=== PATIENT | male | born 1950 | race Caucasian/White ===

== ENCOUNTER 2016-11-17 19:30 | Emergency (ER) | payer MEDICARE, OTHER ==
[2016-11-17 19:52] VITALS: BP 147/92
[2016-11-17] MEDS ORDERED: Lidocaine 1% 50 ML MDV INJECT ONE (19:52)
--- NOTE | 2016-11-17 20:05 | EDM.PDOC ---
ED HPI Skin/Rash - General Chief Complaint: Laceration Stated Complaint: L INDEX FINGER LACERATION Time Seen by Provider: 11/17/16 19:50 Source: Reports: Patient History Limitations: Reports: No limitations - History of Present Illness INITIAL COMMENTS - FREE TEXT/NARRATIVE: Patient is a 66-year-old male presents ED complaining of left index finger laceration secondary to a crush injury from a heavy ramp. Patient states he got it stuck in between a wheel and ramp. States with palpation of a possible crunching of the bones noted. States pain is mild at this time. Tetanus up-to- date. Location, Skin: Reports: upper extremity, left (index finger left hand) Quality: Reports: Ache Severity: mild Known Identified Source: yes Place of Occurrence: home Sick Contact: no Similar Symptoms Previously: no Recent Medical Care: no Treatments OCULARIST: Reports: Other (see below) (none stated. ) - Related Data Allergies Allergy/AdvReac Type Severity Reaction Status Date / Time No Known Allergies Allergy Verified 11/17/16 19:52 Home Meds: Ambulatory Orders Medication Instructions Recorded Confirmed Cephalexin [Keflex] 500 mg PO QID #28 capsule 11/17/16 Citalopram [Celexa] 10 mg PO DAILY 11/17/16 11/17/16 ED ROS GENERAL - Review of Systems Review Of Systems: See Below Musculoskeletal: Reports: other (laceration to the tip of the left index finger involving the nailbed. ) Neurological: Denies: Numbness, Tingling ED EXAM, SKIN/RASH Exam: See Below Exam Limited By: No limitations General Appearance: alert, WD/WN, no apparent distress Ears: hearing grossly normal Nose: normal inspection Throat/Mouth: Normal voice, No airway compromise Neck: normal inspection Respiratory/Chest: no respiratory distress, no accessory muscle use Cardiovascular: normal peripheral pulses, regular rate, rhythm Extremities: other (laceration to the tip of the left index finger with deformity noted. minimal pain on examination. no sensory changes noted. unable to flex/extend the tip of the finger suspect extensor/extension tendons involved. ) Neurological: alert, oriented, normal cognition Psychiatric: normal affect, normal mood Skin: Warm, Dry, Normal color Course - Vital Signs Last Recorded V/S: Last Vital Signs Temp 97.9 F 11/17/16 19:42 Pulse 68 11/17/16 19:42 Resp 16 11/17/16 19:42 BP 147/92 H 11/17/16 19:42 Pulse Ox 95 11/17/16 19:42 - Orders/Labs/Meds Orders: Active Orders 24 hr Category Date Time Status Peripheral IV Care [RC] . DIRECTED Care 11/17/16 20:56 Active Fingers Second Digit Lt F1 [CR] Stat Exams 11/17/16 19:52 Taken Sodium Chloride 0.9% [Saline Flush] Med 11/17/16 20:56 Active 10 ml FLUSH ASDIRECTED PRN Peripheral IV Insertion Adult [OM.PC] Stat Oth 11/17/16 20:56 Ordered Medication Orders Sodium Chloride (Saline Flush) 10 ml FLUSH ASDIRECTED PRN PRN Reason: Keep Vein Open Last Admin: 11/17/16 21:10 Dose: 10 ml Meds: Medications Generic Name Dose Route Start Last Admin Trade Name Freq PRN Reason Stop Dose Admin Sodium Chloride 10 ml 11/17/16 20:56 11/17/16 21:10 Saline Flush FLUSH 10 ml ASDIRECTED PRN Administration Keep Vein Open Discontinued Medications Generic Name Dose Route Start Last Admin Trade Name Freq PRN Reason Stop Dose Admin Cefazolin Sodium/Dextrose 1 gm 50 mls @ 100 mls/hr 11/17/16 20:56 11/17/16 21 :06 / Premix IV 11/17/16 21:25 100 mls/hr ONETIME ONE Administration Lidocaine HCl 50 ml 11/17/16 19:52 11/17/16 20:02 Xylocaine 1% INJECT 11/17/16 19:53 50 ml ONETIME ONE Administration - Re-Assessments/Exams Free Text/Narrative Re-Assessment/Exam: 11/17/16 20:11 Performed a digital block on the left index finger with no complications. Finger is numb. Will obtain IV for IV antibiotics. X-ray to be obtained. Once this is completed we'll go ahead and close the affected finger with sutures. IV has been ordered with Ancef 1 g IVP. X-ray of the right fifth finger shows a displaced fracture to the distal phalanx. 11/17/16 21:45 IV antibiotic is in. Laceration closed with no complications. Reexamination, patient was able to flex and extend the Distal phalanx at the DIP when put back together. Will have nursing staff dress wound with tube gauze and aluminium splint. Will discharge patient home with instructions and prescription for keflex. Departure - Departure Time of Disposition: 21:54 Disposition: Home, Self-Care 01 Condition: good Clinical Impression: Open finger fracture Qualifiers: Encounter type: initial encounter Finger: index finger Phalanx: distal Fracture alignment: displaced Laterality: left Qualified Code(s): S62.631B - Displaced fracture of distal phalanx of left index finger, initial encounter for open fracture Open wnd finger w/ tendon Qualifiers: Encounter type: initial encounter Qualified Code(s): S61.209A - Unspecified open wound of unspecified finger without damage to nail, initial encounter Prescriptions: Cephalexin [Keflex] 500 mg PO QID #28 capsule Referrals: Lavelle Aguiar MD [Primary Care Provider] - Forms: ED Department Discharge Additional Instructions: Leave dressing in place until tomorrow afternoon. Cleanse site twice daily with soap and water, pat dry. Apply triple antibiotic ointment and dressing. Keep clean and dry. Wear splint for at least [address] Padilla's clinic tomorrow to be evaluated RAUL. Take the keflex as prescribed. For pain take ibuprofen and tylenol in alternating fashion for pain. For severe pain take norco 1 tab every 6 hrs PRN. No driving while taking the norco. Elevate finger when able to reduce swelling. Utilize ice as needed for swelling as well. Return to the E.D. if you develop increased pain, swelling, redness, or purulent drainage. - My Orders Last 24 Hours: My Active Orders 11/17/16 19:52 Fingers Second Digit Lt F1 [CR] Stat 11/17/16 20:56 Peripheral IV Care [RC] . DIRECTED Sodium Chloride 0.9% [Saline Flush] 10 ml FLUSH ASDIRECTED PRN Peripheral IV Insertion Adult [OM.PC] Stat - Assessment/Plan Last 24 Hours: My Active Orders 11/17/16 19:52 Fingers Second Digit Lt F1 [CR] Stat 11/17/16 20:56 Peripheral IV Care [RC] . DIRECTED Sodium Chloride 0.9% [Saline Flush] 10 ml FLUSH ASDIRECTED PRN Peripheral IV Insertion Adult [OM.PC] Stat
[2016-11-17] MEDS ORDERED: Sodium Chloride 0.9% 10 ML Syringe FLUSH PRN (20:56)
[2016-11-17] MEDS ORDERED: ceFAZolin 1 GM in Premix Bag 1 BAG IV ONE (20:56)
--- NOTE | 2016-11-18 08:21 | CR ---
Left second finger: Four views of the left second finger were obtained. Fracture is identified within the distal phalanx. Mild degenerative change noted within the DIP and PIP joint as well as small osteophytes within the MCP joint. Soft tissue swelling and injury are seen. No additional acute abnormality is noted. Impression: 1. Fracture within the distal phalanx with soft tissue swelling. 2. Mild degenerative change. Diagnostic code #3
== END 2016-11-17 22:15 | disposition home or self-care (01) ==
LOC: JD.ED 19:30
DX: S62.631B Displaced fracture of distal phalanx of left index finger, initial encounter for open fracture (principal); W23.0XXA Caught, crushed, jammed, or pinched between moving objects, initial encounter; Z79.899 Other long term (current) drug therapy
CPT/HCPCS: 12004; 64450; 73140; 96365; 99283; J0690; J7050; 12002; 99284-25

== ENCOUNTER 2017-08-19 08:34 | Emergency (ER) | payer MEDICARE, OTHER ==
--- NOTE | 2017-08-19 09:04 | EDM.PDOC ---
ED HPI GENERAL MEDICAL PROBLEM - General Chief Complaint: Syncope Stated Complaint: SOB/POSS ANXIETY Time Seen by Provider: 08/19/17 08:58 Source of Information: Reports: Patient History Limitations: Reports: No Limitations - History of Present Illness INITIAL COMMENTS - FREE TEXT/NARRATIVE: 67-year-old male attends the ED in the accompaniment of his . Patient states that he got up this morning as per his usual. He made oatmeal and had eaten oatmeal but did not feel well after eating. Got up from the table and start to walk towards the bedroom to get his for help due to the way he was feeling. He made it into the bedroom but then collapsed at the foot of the bed striking his undersurface of his mid mandible on a bench. He denies any malocclusion. He also injured his right hand when it hit the floor. He subsequently has developed left-sided cervical neck pain mostly in the distribution of the sternocleidomastoid muscle. Feels dizzy and lightheaded and remains quite nauseated. He's been having chronic troubles with his stomach and is booked potentially for EGD this Friday. He said no previous abdominal surgery. When he tried to get up or with the assistance of his he once again collapsed to the floor without loss of consciousness. I.e. presyncope. He is moderately orthostatic. Heart rate is in the 50s. He continues to feel lightheaded dizzy and nauseated with some abdominal discomfort. Denies any knee or lower extremity pain and is able to walk with the aid of his . His reports that when he came into the bedroom he was very pallid in appearance and appeared to be diaphoretic. She reports she was very nauseated at the time that he entered the bedroom. He strong vagal effect Onset: Today Onset Date: 08/19/17 Onset Time: 07:00 Duration: Hour(s): Location: Reports: Head, Face (Undersurface of mandible.) Quality: Reports: Other Severity: Moderate (Nausea and lightheadedness abdominal pain epigastric right upper quadrant) Improves with: Reports: None Worsens with: Reports: Movement Context: Reports: Other (Sudden onset of nausea and lightheadedness and dizziness and near syncope episode 2 this morning.). Denies: Activity ( Standing up and walking.), Exercise, Lifting, Sick Contact, Trauma Associated Symptoms: Reports: Loss of Appetite, Malaise, Nausea/Vomiting, Shortness of Breath. Denies: Confusion, Chest Pain, Cough, cough w sputum, Diaphoresis, Fever/Chills, Headaches, Rash, Seizure, Syncope Treatments [employer]: Reports: Other (see below) Headache Pain Score (Numeric/FACES): 5 Right Hand Pain Score (Numeric/FACES): 5 - Related Data Allergies Allergy/AdvReac Type Severity Reaction Status Date / Time No Known Allergies Allergy Verified 08/19/17 08:57 Home Meds: Home Meds Citalopram [Celexa] 20 mg PO DAILY 11/17/16 [History] Cholecalciferol (Vitamin D3) [Vitamin D3] 0 unit PO DAILY 08/19/17 [History] Omeprazole Magnesium [Prilosec Otc] 20 mg PO DAILY 08/19/17 [History] Ondansetron [Zofran] 4 mg BUCCAL Q6H PRN #8 tab 08/19/17 [Rx] Simvastatin [Zocor] 0 mg PO DAILY 08/19/17 [History] Tamsulosin HCl 0.4 mg PO DAILY 08/19/17 [History] Past Medical History Psychiatric History: Reports: Depression - Past Surgical History HEENT Surgical History: Reports: Eye Surgery, Naso-Sinus Surgery Musculoskeletal Surgical History: Reports: Knee Replacement, Shoulder Replacement Social & Family History - Family History Family Medical History: Noncontributory - Tobacco Use Smoking Status *Q: Never Smoker - Caffeine Use Caffeine Use: Reports: None - Recreational Drug Use Recreational Drug Use: No - Living Situation & Occupation Living situation: Reports: Occupation: Employed (Self-employed.) ED [facility] - Review of Systems Review Of Systems: See Below Constitutional: Reports: Chills, Malaise, Weakness, Fatigue, Decreased Appetite , Weight Loss, Other (Been having crying prongs with his stomach.). Denies: Fever HEENT: Reports: No Symptoms Respiratory: Reports: Shortness of Breath. Denies: Wheezing, Pleuritic Chest Pain (Always a little short of breath.), Cough, Sputum, Hemoptysis Cardiovascular: Reports: No Symptoms Endocrine: Reports: Fatigue GI/Abdominal: Reports: Abdominal Pain (Recurrent abdominal pain can necessary state and it's worse with eating.), Decreased Appetite. Denies: Constipation, Diarrhea, Difficulty Swallowing, Hematemesis, Hematochezia, Melena : Reports: No Symptoms Musculoskeletal: Reports: Other (Pain at the undersurface of his mandible from hitting the bench when he went down the floor. Injury to his right hand he believes when it struck the floor across his MCPs particular a fourth and fifth right hand.) Skin: Reports: No Symptoms ( Left sided neck pain.) Neurological: Reports: Dizziness, Syncope, Weakness (Generalized). Denies: Headache, Numbness, Paresthesia, Pre-Existing Deficit (Near syncope 2.), Seizure, Tingling, Tremors, Trouble Speaking, Difficulty Walking, Change in Speech, Gait Disturbance Psychiatric: Reports: No Symptoms Hematologic/Lymphatic: Reports: No Symptoms Immunologic: Reports: No Symptoms - Physical Exam Exam: See Below Exam Limited By: No Limitations General Appearance: Alert, WD/WN, Moderate Distress (Very anxious.) Eye Exam: Bilateral Eye: Normal Inspection (No jaundice.) Throat/Mouth: Normal Inspection, Normal Lips, Normal Teeth, Normal Oropharynx Head Exam: Atraumatic, Normocephalic, Facial Swelling, Facial Tenderness ( Tenderness on the undersurface of his mandible in the midline. It is covered by Belle no obvious hematoma is evident.), Other (No evidence of closed head injury.). No: Scalp Lacerations Neck: Full Range of Motion, Tender Lateral. No: Lymphadenopathy (L), Lymphadenopathy (R), Thyromegaly (Tenderness throughout the lateral left cervical spine and distribution of the sternocleidomastoid musculature.) Respiratory/Chest: No Respiratory Distress, Lungs Clear, Normal Breath Sounds, Chest Non-Tender, Respiratory Distress, Other (No evidence of rib or chest wall injury ) Cardiovascular: Normal Peripheral Pulses (from his syncopal events.), Regular Rate, Rhythm, No Edema, No Gallop, No Murmur, No Rub, Bradycardia (Bradycardia 51-58/m.) GI/Abdominal: Normal Bowel Sounds, Soft, No Organomegaly, No Distention, No Abnormal Bruit, No Mass, Tender (Tenderness right upper quadrant with a positive Hanna sign.) Neuro Exam (Abbreviated): Alert, Oriented, CN II-XII Intact, Normal Cognition, No Motor/Sensory Deficits Extremities: Normal Inspection, Normal Range of Motion, Non-Tender, No Pedal Edema Psychiatric: Normal Affect, Normal Mood Skin Exam: Warm, Dry, Intact, Normal Color, No Rash EKG INTERPRETATION EKG Date: 08/19/17 Time: 08:46 Rhythm: NSR Rate (Beats/Min): 60 [place]: LAD-Left [place] Deviation (Mild left axis deviation of 14-14.) P-Wave: Present QRS: Other (RS are prime V1 and V2. Normal variant.) ST-T: Elevated (Mild ST segment elevation in lead V2 only nonspecific there is a diffuse early repolarization pattern otherwise.) QT: Prolonged (Moderately prolonged.) EKG Interpretation Comments: Abnormal ECG Course - Vital Signs Last Recorded V/S: Last Vital Signs Temp 36.6 C 08/19/17 08:48 Pulse 55 L 08/19/17 12:01 Resp 18 08/19/17 12:01 BP 130/48 L 08/19/17 12:01 Pulse Ox 98 08/19/17 12:01 Orthostatic Blood Pressure [ 124/72 Standing] Orthostatic Blood Pressure [ 134/81 Sitting] Orthostatic Blood Pressure [ 143/77 Supine] - Orders/Labs/Meds Orders: Active Orders 24 hr Category Date Time Status EKG Documentation Completion [RC] STAT Care 08/19/17 09:05 Active Orthostatic Vital Signs [RC] ASDIRECTED Care 08/19/17 09:04 Active Orthostatic Vital Signs [RC] ASDIRECTED Care 08/19/17 09:16 Active Labs: Laboratory Tests 08/19/17 08/19/17 08/19/17 Range/Units 09:00 09:00 09:00 WBC 6.49 (4.23-9.07) K/mm3 RBC 4.97 (4.63-6.08) M/mm3 Hgb 14.8 (13.7-17.5) gm/L Hct 43.5 (40.1-51.0) % MCV 87.5 (79.0-92.2) fl MCH 29.8 (25.7-32.2) pg MCHC 34.0 (32.2-35.5) g/dl RDW Std Deviation 42.6 (35.1-43.9) fL Plt Count 228 (163-337) K/mm3 MPV 10.1 (9.4-12.3) fl Neutrophils % (Manual) 59 (40-60) % Band Neutrophils % 0 (0-10) % Lymphocytes % (Manual) 35 (20-40) % Atypical Lymphs % 0 % Monocytes % (Manual) 3 (2-10) % Eosinophils % (Manual) 3 (0.8-7.0) % Basophils % (Manual) 0 L (0.2-1.2) Platelet Estimate Adequate RBC Morph Comment Normal PT 9.8 (8.0-13.0) SECONDS INR 0.90 D-Dimer, Quantitative 0.65 H (0.19-0.59) mg/L Sodium 140 (136-145) mEq/L Potassium 3.8 (3.5-5.1) mEq/L Chloride 104 (98-107) mEq/L Carbon Dioxide 23 (21-32) mEq/L Anion Gap 16.8 H (5-15) BUN 22 H (7-18) mg/dL Creatinine 1.3 (0.7-1.3) mg/dL Est Cr Clr Drug Dosing 51.88 mL/min Estimated GFR (MDRD) 55 (>60) mL/min BUN/Creatinine Ratio 16.9 (14-18) Glucose 170 H (80-115) mg/dL Calcium 9.0 (8.5-10.1) mg/dL Magnesium 2.0 (1.8-2.4) mg/dl Total Bilirubin 0.4 (0.2-1.0) mg/dL AST 20 (15-37) U/L ALT 31 (16-63) U/L Alkaline Phosphatase 93 (46-116) U/L CK-MB (CK-2) 1.0 (0-3.6) ng/ml Troponin I < 0.017 (0.00-0.056) ng/mL C-Reactive Protein < 0.2 (<1.0) mg/dL Total Protein 7.2 (6.4-8.2) g/dl Albumin 3.6 (3.4-5.0) g/dl Globulin 3.6 gm/dL Albumin/Globulin Ratio 1.0 (1-2) Ketones (0.0-0.3) mM 08/19/17 Range/Units 09:00 WBC (4.23-9.07) K/mm3 RBC (4.63-6.08) M/mm3 Hgb (13.7-17.5) gm/L Hct (40.1-51.0) % MCV (79.0-92.2) fl MCH (25.7-32.2) pg MCHC (32.2-35.5) g/dl RDW Std Deviation (35.1-43.9) fL Plt Count (163-337) K/mm3 MPV (9.4-12.3) fl Neutrophils % (Manual) (40-60) % Band Neutrophils % (0-10) % Lymphocytes % (Manual) (20-40) % Atypical Lymphs % % Monocytes % (Manual) (2-10) % Eosinophils % (Manual) (0.8-7.0) % Basophils % (Manual) (0.2-1.2) Platelet Estimate RBC Morph Comment PT (8.0-13.0) SECONDS INR D-Dimer, Quantitative (0.19-0.59) mg/L Sodium (136-145) mEq/L Potassium (3.5-5.1) mEq/L Chloride (98-107) mEq/L Carbon Dioxide (21-32) mEq/L Anion Gap (5-15) BUN (7-18) mg/dL Creatinine (0.7-1.3) mg/dL Est Cr Clr Drug Dosing mL/min Estimated GFR (MDRD) (>60) mL/min BUN/Creatinine Ratio (14-18) Glucose (80-115) mg/dL Calcium (8.5-10.1) mg/dL Magnesium (1.8-2.4) mg/dl Total Bilirubin (0.2-1.0) mg/dL AST (15-37) U/L ALT (16-63) U/L Alkaline Phosphatase (46-116) U/L CK-MB (CK-2) (0-3.6) ng/ml Troponin I (0.00-0.056) ng/mL C-Reactive Protein (<1.0) mg/dL Total Protein (6.4-8.2) g/dl Albumin (3.4-5.0) g/dl Globulin gm/dL Albumin/Globulin Ratio (1-2) Ketones 0.2 (0.0-0.3) mM Meds: Medications Discontinued Medications Generic Name Dose Route Start Last Admin Trade Name Freq PRN Reason Stop Dose Admin Dextrose/Sodium Chloride 1,000 mls @ 500 mls/hr 08/19/17 09:30 08/19/17 09:36 Dextrose 5%-Normal Saline IV 500 mls/hr ASDIRECTED ANGEL Administration Lorazepam 0.5 mg 08/19/17 09:22 08/19/17 09:39 Ativan IVPUSH 08/19/17 09:23 0.5 mg ONETIME ONE Administration Metoclopramide HCl 7.5 mg 08/19/17 09:22 08/19/17 09:36 Reglan IVPUSH 08/19/17 09:23 7.5 mg ONETIME ONE Administration - Radiology Interpretation Free Text/Narrative:: 67-year-old male presents to the ED after suffering a FENG abdominal discomfort with associated nausea after eating oatmeal for breakfast this morning. He admitted the nail himself. He had gotten up from the kitchen chair and went to sit in the easy chair in the living room but started to feel increasingly unwell. By this he meant more pain and nausea in the epigastrium. He therefore got up to travel to the bedroom where his was in bed. He rates the bedroom but he collapsed upon entering the bedroom at the foot of the bed. He struck the undersurface of his jaw on a bench and hurt his right hand when it struck the floor. He has pain across his third fourth and fifth MCP joints right hand without any obvious deformity but evidence most arthritic changes noted across his joints. Pain in the left side of his neck and is to be stuck the sternocleidomastoid muscle. Still feels nauseated and short of breath and is moderately anxious on exam. Plan CT head , CT cervical spine CT maxillofacial bones x-ray right hand. Routine labs to be done. He has orthostatic IV will be D5 normal saline at open. Will give Reglan 7.5 mg IV and Ativan 0.5 mg IV for nausea and anxiety relief. - Re-Assessments/Exams Free Text/Narrative Re-Assessment/Exam: 08/19/17 09:40 patient's orthostatic BPs are lying 143/77 with a heart rate of 51. Sitting BP is 134/81 with a heart rate of 59. Standing BP is 124/73 with heart rate of 59. This indicates a mild orthostatic-induced hypotension. 08/19/17 10:39 Labs reveal a normal white count at 6.49 with 59% neutrophils and no bands. Hemoglobin is 14.8 with hematocrit of 43.5. Platelet count is normal at 228,000. PT is 9.8 INR 0.90. D-dimer is minimally elevated at 0.65. Consider normal for his age. Sodium is 140. Potassium 3.8. Chloride 104 bicarbonate 23. And a gap is elevated at 16.8. He when his 22. Creatinine is 1.3. GFR is 55. Glucose is 170 only elevated. Magnesium normal at 2.0 liver function normal CK-MB fraction 1.0. Therefore denies less than 0.017. C- reactive protein is less than 0.2. Chest x-ray reveals slight cardiomegaly. Tortuous thoracic aorta noted. He has a reversed right shoulder prosthesis lungs are otherwise clear. 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 CT of the cervical spine reveals arthritic changes particularly at the superior aspect of the dens i.e. the atlantoaxial joint often associated with rheumatoid arthritis. He has marked degenerative arthritis and degenerative disc disease at C5-C6 C6-C7 level. No fractures are identified. CT of the maxillofacial bones reveals no fractures of the mandible or dental i injuries. X-ray of the right hand reveals degenerative arthritic changes particularly in the DIP and piece I PG. It shows no fractures. Other than being volume depleted I find no other abnormalities. Question of whether or not his abdominal pain is related to gallbladder disease. 08/19/17 11:21 on speaking with the patient he has no history of previous CVA to his knowledge. He therefore will require further investigations by way of ultrasound of his carotid arteries perhaps CTA and echocardiogram of course. At this point time he is getting his stomach issues sorted out. Initial exam revealed him to be very tender in his right upper quadrant on initial examination I will have an ultrasound of his gallbladder done at this time he last ate about 5:30 this morning. Other than being volume depleted I find no other abnormalities in his lab work. Certainly no evidence of heart related illness. I believe he has suffered vasovagal syncope due to the development of abdominal pain and then nausea reflex. 08/19/17 11:38 Came to find out that the patient actually has had an ultrasound of his gallbladder performed last week at [facility]. Apparently no gallstones were identified. He will therefore be discharged to home. Suggest plenty of fluids such as Gatorade Powerade to provide rehydration. May use Zofran 4 mg under the tongue every 4-6 hours as necessary for relief of nausea. Serum ketones came back at 0.2. Departure - Departure Time of Disposition: 11:39 Disposition: Home, Self-Care 01 Condition: Fair Clinical Impression: Vasovagal near syncope, Recurrent abdominal pain, Volume depletion Contusion of jaw Qualifiers: Encounter type: initial encounter Qualified Code(s): S00.83XA - Contusion of other part of head, initial encounter Sprain of cervical neck Qualifiers: Encounter type: initial encounter Qualified Code(s): S13.9XXA - Sprain of joints and ligaments of unspecified parts of neck, initial encounter - Discharge Information Prescriptions: Ondansetron [Zofran] 4 mg BUCCAL Q6H PRN #8 tab PRN Reason: nausea or vomiting Instructions: Cervical Strain and Sprain With Rehab-SportsMed, Contusion, Easy- to-Read Referrals: Lavelle Aguiar MD [Primary Care Provider] - Forms: ED Department Discharge Additional Instructions: Evaluation in the emergency him today carried out after syncopal event occurred at home 2 this morning on event after another. Associated development of abdominal pain and nausea and vomiting. Occurred after eating oatmeal this morning. Fainting spell occurred I think because of low heart rate aggravated by increased vagal tone due to the reflux that causes nausea and vomiting. This further dropped her heart rate and then your blood pressure which caused you to fall to the floor. Injuries occurred to your jaw from hitting the bench but CT scan reveals no fractures in the mandible. It does so our stretcher 30 changes in the left temporomandibular joint. Similarly cervical neck strain occurred from hyperextension injury of the neck during the fall. This is injured the musculature the anterior neck the sternocleidomastoid muscle etc. CT of the neck bones reveals extensive arthritic changes particularly at C5-C6 C6-C7 disc spaces are nearly [id number]. Is also arthritis at the top of the cervical to joint at the atlantoaxial joint which is sometimes associated with rheumatoid arthritis. Your hand examination suggests that you may have rheumatoid arthritis and due to your history of bilateral knee replacements rheumatoid arthritis screen needs to be carried out. Lab work and chest x-ray proved no sign of heart related illness. Lab work revealed dehydration and you were given a liter of IV fluids to provide rehydration in the ED as well as medication to alleviate nausea. Sennoside CT of the head was done due to the history of passing out twice in a row. Reveal rales no intracranial mass effect or bleeding. It does however show evidence of an old stroke involving the right parietal occipital lobe. This therefore requires further investigation by way of ultrasound of the carotid arteries echocardiogram of her heart CT angiogram of the head and neck so that we may try and prevent further stroke events. If you're EGD on Friday does not reveal any evidence of ulcer been taking a baby aspirin every day would be strongly advised to try and prevent stroke from occurring. Today plenty of fluids such as Gatorade or Powerade to provide rehydration. Resume diet as able. May use Zofran 4 mg under the tongue every 4- 6 hours necessary for relief of nausea vomiting. Follow-up for EGD on Friday as planned. - My Orders Last 24 Hours: My Active Orders 08/19/17 09:04 Orthostatic Vital Signs [RC] ASDIRECTED 08/19/17 09:05 EKG Documentation Completion [RC] STAT 08/19/17 09:16 Orthostatic Vital Signs [RC] ASDIRECTED - Assessment/Plan Last 24 Hours: My Active Orders 08/19/17 09:04 Orthostatic Vital Signs [RC] ASDIRECTED 08/19/17 09:05 EKG Documentation Completion [RC] STAT 08/19/17 09:16 Orthostatic Vital Signs [RC] ASDIRECTED
[2017-08-19] MEDS ORDERED: LORazepam 2 MG/ML MDV IVPUSH ONE (09:22)
[2017-08-19] MEDS ORDERED: Metoclopramide 10 MG/2 ML SDV IVPUSH ONE (09:22)
[2017-08-19] MEDS ORDERED: Dextrose 5%-0.9% NaCl 1,000 ML IV SCH (09:30)
--- NOTE | 2017-08-19 10:07 | CR ---
Chest: Frontal view of the chest was obtained utilizing portable technique. Comparison: Prior chest x-ray of 08/25/10. Heart size is slightly prominent but accentuated from portable technique. Tortuous thoracic aorta is seen. Reversed right shoulder prosthesis is noted which is an interval change from previous study. Lungs are clear with no acute parenchymal densities. Impression: 1. Incidental findings. Nothing acute is seen. Diagnostic code #2
--- NOTE | 2017-08-19 10:13 | CT ---
CT facial bones Technique: Multiple axial sections through the facial bones were obtained. Reconstructed coronal and sagittal images were reviewed. Comparison: No previous study. Findings: Retention cyst is noted within the right maxillary sinus measuring 1.5 cm. No air-fluid levels are seen within the sinuses. Severe degenerative change is noted within the left temporomandibular joint. Right and left globes are symmetric. No facial bone fracture is appreciated. Impression: 1. Nothing acute is seen on CT study of the facial bones. Other incidental findings as noted above. Diagnostic code #2
--- NOTE | 2017-08-19 10:16 | CT ---
CT cervical spine Technique: Multiple axial sections were obtained from above C1 inferiorly to the bottom of T1. Reconstructed sagittal and coronal images were reviewed. Comparison: No previous cervical spine imaging. Findings: Degenerative change is noted between the dens and anterior arch of C1. Mild disc space narrowing noted at C3-C4 and C4-C5. Severe disc space narrowing is noted at C5-C6 and C6-C7. Diffuse anterior osteophytes are seen from C3-C4 through C7-T1. Slight posterior osteophytes are noted at C5-C6 and C6-C7. Degenerative spurring is seen within the uncovertebral joints throughout the cervical spine. No abnormal subluxation is seen on the reconstructed sagittal images. Mild ligamentum nuchal calcification is seen. No fracture is identified. Several levels of neural foraminal stenosis is noted. Mild diffuse degenerative apophyseal change is noted. Impression: 1. Diffuse degenerative change. 2. No acute abnormality is seen on CT study of the cervical spine. Diagnostic code #2
--- NOTE | 2017-08-19 10:19 | CT ---
Head CT Technique: Multiple axial sections through the brain were obtained. Intravenous contrast was not utilized. Comparison: No previous intracranial imaging. Findings: Findings compatible with old infarct within the posterior right parietal region. Ventricles along with basal cisterns and sulci over convexities appear within normal limits for the patient's age. No other abnormal parenchymal densities are seen. No evidence of intracranial hemorrhage. No midline shift or mass effect is seen. Bone window settings were reviewed which shows no acute calvarial abnormality. Impression: 1. Old infarct within the right parietal region posteriorly. 2. No acute intracranial abnormality is identified. Diagnostic code #2
--- NOTE | 2017-08-19 11:16 | CR ---
Right hand: Four views of the right hand were obtained. Comparison: No prior hand exam. Severe degenerative change is noted within the CMC joint of the thumb. Mild joint space narrowing is noted within the third MCP joint. Slight degenerative change is scattered within the DIP joints. Mild degenerative change is seen within the IP joint of the thumb. Minimal deformity of the shaft of the fifth metacarpal is seen most likely representing old healed fracture. No fracture, dislocation or other bony abnormality is seen. Impression: 1. Degenerative change as noted above. 2. No acute abnormality is appreciated on right hand study. Diagnostic code #2
[2017-08-19 12:02] VITALS: BP 130/48
== END 2017-08-19 12:00 | disposition home or self-care (01) ==
LOC: JD.ED 08:34
DX: S13.9XXA Sprain of joints and ligaments of unspecified parts of neck, initial encounter (principal); S00.83XA Contusion of other part of head, initial encounter; R55 Syncope and collapse; E86.9 Volume depletion, unspecified; Z79.899 Other long term (current) drug therapy; W22.8XXA Striking against or struck by other objects, initial encounter
CPT/HCPCS: 36415; 70450; 70486; 71045; 72125; 73130; 80053; 82009; 82553; 83735; 84484; 85025; 85379; 85610; 86140; 93005; 96361; 96374; 96375; 99285; J2060; J2765; J7042; 93010

== ENCOUNTER 2020-01-27 18:10 | Emergency (ER) | payer MEDICARE, OTHER ==
[2020-01-27] MEDS ORDERED: Iopamidol 612 MG/ML 100 ML Bottle IVPUSH ONE (18:27)
[2020-01-27] MEDS ORDERED: Diphtheria,Pertussis(Acell),Tetanus Vaccine 0.5 ML Syringe IM ONE (18:27)
[2020-01-27] MEDS ORDERED: fentaNYL 100 MCG/2 ML SDV IVPUSH ONE (18:27)
[2020-01-27] MEDS ORDERED: Sodium Chloride 0.9% 10 ML Syringe FLUSH PRN (18:27)
[2020-01-27] MEDS: Lidocaine 1% 10 ML MDV INJECT ONE ×2 (18:38→20:11)
[2020-01-27] MEDS ORDERED: HYDROmorphone 1 MG/ML Syringe IVPUSH ONE (19:05)
--- NOTE | 2020-01-27 19:18 | CT ---
Head CT Technique: Multiple axial sections through the brain were obtained. Intravenous contrast was not utilized. Comparison: Prior head CT exam of 08/19/17. Findings: Old infarct is noted within the posterior right parietal region which is similar to previous exam. Ventricles along with basal cisterns and sulci over the convexities are within normal limits for the patient's age. No other abnormal parenchymal densities are seen. No evidence of intracranial hemorrhage. No midline shift or mass-effect is seen. Bone window settings were reviewed. Depressed nasal bone fracture is seen as well as angulated nasal septal fracture. This appears to be acute. Diffuse soft tissue swelling is seen within the nose. No other calvarial abnormality is appreciated. No acute findings within the visualized paranasal sinuses or mastoid sinuses is seen. Impression: 1. Depressed nasal bone fracture with angulated nasal septal fracture. 2. Soft tissue swelling within the nose. 3. Stable senescent change. No acute intracranial abnormality is appreciated. Diagnostic code #3 This report was dictated in MDT
--- NOTE | 2020-01-27 19:19 | EDM.PDOC ---
ED HPI GENERAL MEDICAL PROBLEM Right Chest Pain Score (Numeric/FACES): 8 <Kevin Ferguson - Last Filed: 01/27/20 19:24> - General Source of Information: Reports: Patient, RN Notes Reviewed History Limitations: Reports: No Limitations <KingmanAnnita - Last Filed: 01/27/20 20:19> - General Chief Complaint: Trauma Stated Complaint: FALL (FROM A TRAILER) Time Seen by Provider: 01/27/20 18:15 - History of Present Illness INITIAL COMMENTS - FREE TEXT/NARRATIVE: 69-year-old male brought in after falling off a trailer onto another trailer. Patient slipped on a trailer that was couple feet up then fell straight forward onto another trailer that was lower in clot the hitch the way I understand it. He is complaining of head and neck pain and facial pain as well. He has some bleeding around his nose. He is unsure when his last tetanus shot was. He has some chest discomfort on the right side around the nipple and just medial to it where he has a significant abrasion. Patient denies any abdominal pain or any other injury associated with this he caught himself partially with his right wrist but does not have any pain or discomfort with this and has full function of the wrist. (Kevin Ferguson) - Related Data Allergies Allergy/AdvReac Type Severity Reaction Status Date / Time No Known Allergies Allergy Verified 08/19/17 08:57 Home Meds: Home Meds Citalopram [Celexa] 20 mg PO DAILY 11/17/16 [History] Cholecalciferol (Vitamin D3) [Vitamin D3] 0 unit PO DAILY 08/19/17 [History] Omeprazole Magnesium [Prilosec Otc] 20 mg PO DAILY 08/19/17 [History] Ondansetron [Zofran] 4 mg BUCCAL Q6H PRN #8 tab 08/19/17 [Rx] Simvastatin [Zocor] 0 mg PO DAILY 08/19/17 [History] Tamsulosin HCl 0.4 mg PO DAILY 08/19/17 [History] Acetaminophen/oxyCODONE [Percocet 325-5 MG] 1 each PO Q6H PRN #20 tab 01/27/20 [Rx] cephALEXin [Cephalexin] 500 mg PO BID #14 capsule 01/27/20 [Rx] Past Medical History HEENT History: Reports: Impaired Vision Cardiovascular History: Reports: High Cholesterol Gastrointestinal History: Reports: GERD Other Gastrointestinal History: states c/o "feeling sick all the time." Genitourinary History: Reports: BPH, Other (See Below) Other Genitourinary History: enlarged prostate Psychiatric History: Reports: Anxiety, Depression - Infectious Disease History Infectious Disease History: Reports: Chicken Pox, Measles, Mumps - Past Surgical History HEENT Surgical History: Reports: Eye Surgery, Naso-Sinus Surgery Musculoskeletal Surgical History: Reports: Knee Replacement, Shoulder Replacement <Kevin Ferguson - Last Filed: 01/27/20 19:24> Social & Family History - Family History Family Medical History: Noncontributory - Tobacco Use Smoking Status *Q: Never Smoker Second Hand Smoke Exposure: No - Caffeine Use Caffeine Use: Reports: Coffee - Living Situation & Occupation Living situation: Reports: Occupation: Employed (Self-employed.) <Kevin Ferguson - Last Filed: 01/27/20 19:24> Review of Systems - Review of Systems Review Of Systems: See Below Constitutional: Reports: No Symptoms Eyes: Reports: No Symptoms Ears: Reports: No Symptoms Nose: Reports: Pain, Other (His nasal deformity) Mouth/Throat: Reports: No Symptoms Respiratory: Reports: Other (He has right anterior chest wall discomfort). Denies: Shortness of Breath, Wheezing, Cough, Sputum Cardiovascular: Reports: No Symptoms GI/Abdominal: Reports: No Symptoms, Abdominal Pain. Denies: Constipation, Diarrhea, Nausea, Vomiting Genitourinary: Reports: No Symptoms Musculoskeletal: Reports: Neck Pain <Kevin eFrguson - Last Filed: 01/27/20 19:24> ED EXAM, GENERAL - Physical Exam Exam: See Below Exam Limited By: No Limitations General Appearance: Alert, Moderate Distress (In some discomfort mostly head and neck) Eye Exam: Bilateral Eye: Normal Inspection Ears: Normal External Exam, Normal Canal, Hearing Grossly Normal, Normal TMs Nose: Nasal Deformity, Other (Laceration over the bridge of his nose down the left side of the nose) Throat/Mouth: Normal Inspection, Normal Oropharynx, Normal Voice, Other (Changes noted with his teeth there is no loose teeth or fractured teeth identified. With careful palpation of each tooth. No tenderness noted) Head: Facial Swelling, Sinus Tenderness Neck: Other (C collar in place) Respiratory/Chest: No Respiratory Distress, Lungs Clear, Normal Breath Sounds, Other (Right sided chest wall discomfort anteriorly from the area of the nipple raise developing some ecchymosis slightly medial where he has an abrasion) Cardiovascular: Regular Rate, Rhythm, No Edema, No Murmur GI/Abdominal: Normal Bowel Sounds, Soft, Non-Tender, Other (Few superficial abrasions) Back Exam: Normal Inspection. No: CVA Tenderness (L), CVA Tenderness (R), Ve rtebral Tenderness Extremities: Normal Inspection, Normal Range of Motion, Non-Tender <JacquelineoswaldoKeivn Ramos - Last Filed: 01/27/20 19:24> - Physical Exam Exam: See Below Exam Limited By: No Limitations General Appearance: Alert Ears: Normal External Exam, Normal Canal, Hearing Grossly Normal, Normal TMs Nose: Nasal Deformity, Other Throat/Mouth: Normal Inspection, Normal Teeth, Normal Oropharynx, Normal Voice, No Airway Compromise, Other Head: Facial Swelling, Sinus Tenderness Neck: Other Respiratory/Chest: No Respiratory Distress, Lungs Clear, Normal Breath Sounds, Other Cardiovascular: Regular Rate, Rhythm, No Edema, No Murmur GI/Abdominal: Normal Bowel Sounds, Soft, Non-Tender, Other Back Exam: Normal Inspection Extremities: Normal Inspection, Normal Range of Motion, Non-Tender Neurological: Alert, Oriented, Normal Cognition, No Motor/Sensory Deficits Psychiatric: Normal Affect, Normal Mood Skin Exam: Warm, Dry, Normal Color, No Rash, Other (scattered abrasions noted to anterior chest and abdomen. laceration over bridge of nose with active bleeding.) <Annita Feng - Last Filed: 01/27/20 20:19> ED TRAUMA PROCEDURES - Laceration/Wound Repair Medial Nose Lac/Wound Length In cm: 1 Appearance: Superficial, Linear, Clean Skin Prep: Chlorhexidine (Hibiciens), Saline Exploration/Debridement/Repair: Wound Explored, In a Bloodless Field, Explored to Base, No Foreign Material Found Closed With: Dermabond Sterile Dressing Applied: Nurse Tetanus Status Addressed: Yes Complications: No <Annita Feng - Last Filed: 01/27/20 20:19> EKG INTERPRETATION EKG Date: 01/27/20 Rhythm: NSR Kaufman: LAD-Left Kaufman Deviation P-Wave: Present QRS: Normal ST-T: Normal QT: Normal Comparison: No Change (No significant change from 05/14) <Kevin Ferguson - Last Filed: 01/27/20 19:24> Course <Kevin Ferguson - Last Filed: 01/27/20 19:24> <KingmanAnnita - Last Filed: 01/27/20 20:19> - Vital Signs Last Recorded V/S: Last Vital Signs Temp 97.3 F 01/27/20 18:25 Pulse 64 01/27/20 18:25 Resp 20 01/27/20 18:25 BP 135/71 01/27/20 18:25 Pulse Ox 100 01/27/20 18:25 - Orders/Labs/Meds Orders: Active Orders 24 hr Category Date Time Status EKG Documentation Completion [RC] STAT Care 01/27/20 18:24 Active Incentive Spirometry [RT Incentive Spirometry] [RC] Care 01/27/20 20:12 Active Q1HWA Vaccines to be Administered [RC] PER UNIT ROUTINE Care 01/27/20 18:27 Active Chest 2V [CR] Routine Exams 01/27/20 19:04 Taken Sodium Chloride 0.9% [Saline Flush] Med 01/27/20 18:27 Active 10 ml FLUSH ONETIME PRN Medication Orders Sodium Chloride (Saline Flush) 10 ml FLUSH ONETIME PRN PRN Reason: Keep Vein Open Last Admin: 01/27/20 18:38 Dose: 10 ml Documented by: CHRISTOPHE Labs: Laboratory Tests 01/27/20 01/27/20 Range/Units 18:20 18:20 WBC 7.20 (4.23-9.07) K/mm3 RBC 4.62 L (4.63-6.08) M/mm3 Hgb 13.7 (13.7-17.5) gm/dl Hct 41.9 (40.1-51.0) % MCV 90.7 D (79.0-92.2) fl MCH 29.7 (25.7-32.2) pg MCHC 32.7 (32.2-35.5) g/dl RDW Std Deviation 45.1 H (35.1-43.9) fL Plt Count 293 (163-337) K/mm3 MPV 9.8 (9.4-12.3) fl Neut % (Auto) 46.7 (34.0-67.9) % Lymph % (Auto) 40.3 (21.8-53.1) % Norton % (Auto) 11.0 (5.3-12.2) % Eos % (Auto) 1.3 (0.8-7.0) Baso % (Auto) 0.4 (0.1-1.2) % Neut # (Auto) 3.37 (1.78-5.38) K/mm3 Lymph # (Auto) 2.90 (1.32-3.57) K/mm3 Norton # (Auto) 0.79 (0.30-0.82) K/mm3 Eos # (Auto) 0.09 (0.04-0.54) K/mm3 Baso # (Auto) 0.03 (0.01-0.08) K/mm3 Sodium 142 (136-145) mEq/L Potassium 3.9 (3.5-5.1) mEq/L Chloride 105 (98-107) mEq/L Carbon Dioxide 25 (21-32) mEq/L Anion Gap 15.9 H (5-15) BUN 32 H (7-18) mg/dL Creatinine 1.6 H (0.7-1.3) mg/dL Est Cr Clr Drug Dosing 42.35 mL/min Estimated GFR (MDRD) 43 (>60) mL/min BUN/Creatinine Ratio 20.0 H (14-18) Glucose 172 H (83-115) mg/dL Calcium 9.1 (8.5-10.1) mg/dL Total Bilirubin 0.4 (0.2-1.0) mg/dL AST 23 (15-37) U/L ALT 25 (16-63) U/L Alkaline Phosphatase 66 (46-116) U/L Troponin I < 0.017 (0.00-0.056) ng/mL Total Protein 7.4 (6.4-8.2) g/dl Albumin 3.9 (3.4-5.0) g/dl Globulin 3.5 gm/dL Albumin/Globulin Ratio 1.1 (1-2) Meds: Medications Generic Name Dose Route Start Last Admin Trade Name Freq PRN Reason Stop Dose Admin Sodium Chloride 10 ml 01/27/20 18:27 01/27/20 18:38 Saline Flush FLUSH 10 ml ONETIME PRN Administration Keep Vein Open Discontinued Medications Generic Name Dose Route Start Last Admin Trade Name Maegan PRN Reason Stop Dose Admin Diphtheria/Tetanus/Acell Pertussis 0.5 ml 01/27/20 18:27 01/27/20 18:39 Adacel IM 01/27/20 18:28 0.5 ml .ONCE ONE Administration Fentanyl 50 mcg 01/27/20 18:27 01/27/20 18:35 Sublimaze IVPUSH 01/27/20 18:28 50 mcg ONETIME ONE Administration Hydromorphone HCl 1 mg 01/27/20 19:05 01/27/20 19:19 Dilaudid IVPUSH 01/27/20 19:06 1 mg ONETIME ONE Administration Iopamidol 80 ml 01/27/20 18:27 01/27/20 19:13 Isovue-300 (61%) IVPUSH 01/27/20 18:28 Not Given ONETIME ONE Lidocaine HCl 10 ml 01/27/20 18:27 01/27/20 20:11 Xylocaine 1% INJECT 01/27/20 18:28 Not Given ONETIME ONE - Re-Assessments/Exams Free Text/Narrative Re-Assessment/Exam: 01/27/20 19:25 Further care and disposition per JEANINE Andrea (Kevin Ferguson) 01/27/20 19:[address] Ferguson after he initially assessed the patient, and ordered imaging and labs. The laboratory evaluation is essentially unremarkable, he is not suffering from any sort of cardiac contusion as evidenced by the troponin level. 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 There is a laceration over this, so it would considered an open fracture of the nose. I will consult with ENT at [facility] in [place] for further management regarding repair of the nasal fracture. Patient is still having a fair amount of pain, so I did order 1mg of Dilaudid for further pain management. Patient will likely feel quite sore over the next few days, after repair of his nose, will discharge him home with some pain medications and recommendation to follow-up with ENT in [place]. 01/27/20 19:36 I did call [facility] and Dr. Curtis was transitional care manager for maxillofacial but he did not answer the phone, am awaiting his call at this time for further management. 01/27/20 20:18 Official radiology read is pending on the chest x-ray, but there is no obvious fracture or bony abnormality appreciated, no pneumothorax appreciated. Patient will be sent home with incentive spirometry for acute blunt chest trauma to help prevent pneumonia. (Annita Feng) Departure <Kevin Ferguson - Last Filed: 01/27/20 19:24> - Departure Time of Disposition: 20:12 Condition: Good - Discharge Information *PRESCRIPTION DRUG MONITORING PROGRAM REVIEWED*: Yes *COPY OF PRESCRIPTION DRUG MONITORING REPORT IN PATIENT SWETHA: No <Annita Feng - Last Filed: 01/27/20 20:19> - Departure Disposition: Home, Self-Care 01 Clinical Impression: Nasal bone fracture Qualifiers: Encounter type: initial encounter Fracture type: open Qualified Code(s): S02.2XXB - Fracture of nasal bones, initial encounter for open fracture Fall Qualifiers: Encounter type: initial encounter Qualified Code(s): W19.XXXA - Unspecified fall, initial encounter Blunt trauma to chest Qualifiers: Encounter type: initial encounter Qualified Code(s): S29.8XXA - Other specified injuries of thorax, initial encounter - Discharge Information Prescriptions: cephALEXin [Cephalexin] 500 mg PO BID #14 capsule Acetaminophen/oxyCODONE [Percocet 325-5 MG] 1 each PO Q6H PRN #20 tab PRN Reason: Pain Instructions: Nasal Fracture, [id number], Blunt Chest Trauma Referrals: Lavelle Aguiar MD [Primary Care Provider] - Forms: ED Department Discharge Additional Instructions: You were evaluated in the ER today regarding your fall and traumatic injuries sustained after the fall. You had laboratory evaluation and imaging done, labs are within normal limits, and your maxillofacial CT demonstrates a nasal fracture of the septum and bridge of your nose. This will likely require surgical management to repair, recommend you call [facility] in [place], tomorrow for further management regarding this. Dr. Curtis was the ENT on-call, is a telephone number for their facility, they should be able to direct you to a maxillofacial surgeon or ENT provider that can help you with this. Your images have already been to [facility] in [place] for their review, from donna's visit. You have been given a prescription for an antibiotic, and a pain medication, please take the antibiotic 1 tab 2 times a day for the next 7 days, pain medicat ion is Percocet, 1 tab every 6 hours as needed for pain not relieved by Tylenol alone. Recommend you take 500 mg Tylenol every 6 hours as needed for further pain relief, do not exceed 4000 mg of Tylenol in a 24-hour time span. You will likely feel pretty stiff and sore over the next few days, recommend that you try to limit activities as much as possible, please try to ice the area of your nose, to provide further swelling relief. You have been given an incentive spirometer, this is to use every hour while awake to help prevent pneumonia, due to your blunt chest trauma. You will likely be breathing a little bit shallower due to the pain, and this again will help prevent pneumonia. Please return to the ER at any time if your symptoms should change or worsen. Sepsis Event Note (ED) - Evaluation Sepsis Screening Result: No Definite Risk <Kevin Ferguson - Last Filed: 01/27/20 19:24> - Focused Exam Vital Signs: Vital Signs Temp Pulse Resp BP Pulse Ox 01/27/20 18:25 97.3 F 64 20 135/71 100 01/27/20 18:17 97.1 F 68 18 149/90 H 100 - My Orders Last 24 Hours: My Active Orders 01/27/20 20:12 Incentive Spirometry [RT Incentive Spirometry] [RC] Q1HWA - Assessment/Plan Last 24 Hours: My Active Orders 01/27/20 20:12 Incentive Spirometry [RT Incentive Spirometry] [RC] Q1HWA
--- NOTE | 2020-01-27 19:22 | CT ---
CT cervical spine Technique: Multiple axial sections were obtained from above C1 inferiorly to the bottom of T4. Reconstructed sagittal and coronal images were obtained. Comparison: Prior CT cervical spine study of 08/19/17. Findings: Degenerative change is seen diffusely within the cervical spine with scattered areas of disc space narrowing, anterior and posterior osteophytes as well as degenerative apophyseal change. Degenerative change is also noted between the dens and anterior arch of C1. No fracture is seen. No abnormal subluxation is seen. Mild ligamentum nuchal calcification is seen. Scattered areas of mild neural foraminal narrowing is seen. No bony central canal stenosis is seen. Impression: 1. Diffuse degenerative change. 2. No acute fracture or abnormal subluxation is seen. Diagnostic code #2 This report was dictated in MDT
--- NOTE | 2020-01-27 19:24 | CT ---
CT facial bones Technique: Multiple axial sections through the facial bones were obtained. Reconstructed coronal and sagittal images were obtained. Comminuted and depressed nasal bone fracture is seen as well as angulated nasal septal fracture. Associated soft tissue swelling is noted. Right and left globes are symmetric. Severe degenerative change is noted within the left temporomandibular joint. No additional fracture is appreciated. Impression: 1. Nasal bone fracture as described above including nasal septal fracture. 2. No additional facial bone fracture is seen with other findings as noted above. Diagnostic code #3 This report was dictated in MDT
[2020-01-27 20:33] VITALS: BP 140/79; PULSE 68
--- NOTE | 2020-01-28 07:50 | CR ---
Chest: 2 views of the chest were obtained. Comparison: Previous chest x-ray is not available. Fairly large hiatal hernia is seen. Heart has a slight left ventricular configuration. Tortuous thoracic aorta is noted. Lungs are clear with no acute parenchymal change. Right shoulder prosthesis is seen. No acute bony abnormality is appreciated. Impression: 1. Findings as noted above. 2. Nothing acute is appreciated. Diagnostic code #2 This report was dictated in MDT MTDD
== END 2020-01-27 20:32 | disposition home or self-care (01) ==
LOC: JD.ED 18:10
DX: S02.2XXB Fracture of nasal bones, initial encounter for open fracture (principal); S20.211A Contusion of right front wall of thorax, initial encounter; S30.811A Abrasion of abdominal wall, initial encounter; E78.00 Pure hypercholesterolemia, unspecified; K21.9 Gastro-esophageal reflux disease without esophagitis; N40.0 Benign prostatic hyperplasia without lower urinary tract symptoms; F41.9 Anxiety disorder, unspecified; F32.9 Major depressive disorder, single episode, unspecified; Z23 Encounter for immunization; Z79.899 Other long term (current) drug therapy; W17.89XA Other fall from one level to another, initial encounter
CPT/HCPCS: 12011; 36415; 70450; 70486; 71046; 72125; 80053; 84484; 85025; 90471; 90715; 93005; 96374; 96375; 99285; J1170; J3010; 93010; 99283; J2001

== ENCOUNTER 2021-08-14 15:28 | Emergency (ER) | payer MEDICARE, OTHER ==
[2021-08-14] MEDS ORDERED: Sodium Chloride 0.9% 10 ML Syringe FLUSH PRN (15:47)
[2021-08-14 16:24] VITALS: BP 107/80; PULSE 101
[2021-08-14] MEDS ORDERED: Enoxaparin 80 MG/0.8 ML Syringe SUBCUT ONE (17:24)
[2021-08-14] MEDS ORDERED: Rivaroxaban 15 MG Tab PO STA (17:36)
== END 2021-08-14 18:54 | disposition home or self-care (01) ==
LOC: JD.ED 15:28
DX: I26.99 Other pulmonary embolism without acute cor pulmonale (principal); E78.00 Pure hypercholesterolemia, unspecified; K21.9 Gastro-esophageal reflux disease without esophagitis; Z79.899 Other long term (current) drug therapy; Z87.891 Personal history of nicotine dependence; Z20.822 Contact with and (suspected) exposure to COVID-19
CPT/HCPCS: 36415; 80053; 85025; 85610; 85730; 93005; 96372; 99285; A9270; J1650; U0002

== ENCOUNTER 2021-08-19 19:05 | Emergency (ER) | payer MEDICARE, OTHER ==
[2021-08-19] MEDS ORDERED: Sodium Chloride 0.9% 10 ML Syringe FLUSH PRN (19:25)
[2021-08-19 19:27] VITALS: BP 97/61; PULSE 82
[2021-08-19] MEDS ORDERED: Sodium Chloride 0.9% 1,000 ML IV SCH (19:30)
[2021-08-19] MEDS ORDERED: cefTRIAXone 1 GM in Sodium Chloride 0.9% 100 ML IV ONE (21:56)
[2021-08-19] MEDS ORDERED: Lactated Ringers 1,000 ML IV ONE (21:56)
== END 2021-08-20 00:30 | disposition home or self-care (01) ==
LOC: JD.ED 19:05 → SUPCPDRO 19:05 → JD.ED 08-20 00:30
DX: E86.0 Dehydration (principal); R55 Syncope and collapse; E78.00 Pure hypercholesterolemia, unspecified; K21.9 Gastro-esophageal reflux disease without esophagitis; Z86.711 Personal history of pulmonary embolism; Z79.01 Long term (current) use of anticoagulants; Z79.899 Other long term (current) drug therapy
CPT/HCPCS: 36415; 70450; 71045; 72125; 80053; 85025; 85379; 93005; 96365; 99285; J0696; J1642; J7030; J7120

== ENCOUNTER 2021-09-04 09:06 | Emergency (ER) | payer MEDICARE, OTHER ==
[2021-09-04 09:25] VITALS: BP 116/72; PULSE 73
[2021-09-04] MEDS ORDERED: Ondansetron 4 MG/2 ML SDV IVPUSH ONE (09:57)
[2021-09-04] MEDS ORDERED: Lactated Ringers 1,000 ML IV ONE (10:54)
[2021-09-04] MEDS ORDERED: Sodium Chloride 0.9% 10 ML Syringe FLUSH PRN (11:54)
[2021-09-04] MEDS ORDERED: Iopamidol 612 MG/ML 100 ML Bottle IVPUSH ONE (11:54)
[2021-09-04] MEDS ORDERED: Sodium Chloride 0.9% 100 ML IV SCH (12:00)
== END 2021-09-04 14:50 | disposition home or self-care (01) ==
LOC: JD.ED 09:06
DX: N13.5 Crossing vessel and stricture of ureter without hydronephrosis (principal); R31.9 Hematuria, unspecified; E78.00 Pure hypercholesterolemia, unspecified; Z86.711 Personal history of pulmonary embolism; Z79.01 Long term (current) use of anticoagulants; Z79.899 Other long term (current) drug therapy
CPT/HCPCS: 36415; 74178; 80053; 81001; 85025; 87086; 96374; 99284; J1642; J2405; J7120; Q9967; 87088; 87186

== ENCOUNTER 2023-05-16 08:03 | Emergency (ER) | payer MEDICARE, OTHER ==
[2023-05-16 08:19] VITALS: BP 142/74; PULSE 90
[2023-05-16] MEDS ORDERED: LORazepam 2 MG/ML SDV IVPUSH ONE (08:24)
[2023-05-16] MEDS ORDERED: levETIRAcetam 500 MG in Sodium Chloride 0.9% 100 ML IV ONE (08:24)
[2023-05-16] MEDS ORDERED: Dextrose 5%-0.9% NaCl 1,000 ML IV SCH (08:30)
[2023-05-16] MEDS ORDERED: levETIRAcetam 500 MG/5 ML SDV ONE (08:49)
[2023-05-16 09:30] LABS: BASOPHILS PERCENT AUTO 0.7 % (0.0-1.0); EOSINOPHILS ABSOLUTE AUTO 0.2 K/mm3 (0.0-0.4); EOSINOPHILS PERCENT AUTO 2.8 % (0.0-6.0); HEMATOCRIT 38.6 % (42.0-52.0); HEMOGLOBIN 13.1 gm/dl (14.0-18.0); IMMATURE GRAN ABSOLUTE AUTO 0.05 K/mm3 (0.00-0.05); IMMATURE GRAN PERCENT AUTO 0.8 % (0.0-0.4); LYMPHOCYTES PERCENT AUTO 32.5 % (24.0-44.0); MEAN CORPUSCULAR HGB CONC 33.9 g/dl (32.0-36.0); MEAN CORPUSCULAR VOLUME 91.3 fl (83.0-99.0); MEAN PLATELET VOLUME 9.8 fl (9.4-12.4); MONOCYTES ABSOLUTE AUTO 0.4 K/mm3 (0.0-0.8); MONOCYTES PERCENT AUTO 6.4 % (0.0-8.0); NEUTROPHILS ABSOLUTE AUTO 3.5 K/mm3 (1.8-7.7); NEUTROPHILS PERCENT AUTO 56.8 % (41.0-71.0); PLATELET COUNT,PLT 188 K/mm3 (150-400); RED BLOOD CELL COUNT 4.23 M/mm3 (4.52-5.90); WHITE BLOOD CELL COUNT,WBC 6.07 K/mm3 (3.9-11.3)
[2023-05-16 09:39] LABS: INR 0.98; PROTHROMBIN TIME 10.5 SECONDS (9.7-12.0)
[2023-05-16 09:41] LABS: PTT,PARTIAL THROMBOPLSTIN TIME 25.5 SECONDS (21.7-31.4)
[2023-05-16 09:42] LABS: APPEARANCE,URINE CLEAR (Clear); BILIRUBIN,URINE NEGATIVE (Negative); COLOR,URINE YELLOW (Yellow); GLUCOSE,URINE NEGATIVE (Negative); KETONES,URINE NEGATIVE (Negative); LEUKOCYTE ESTERASE,URINE 1+ (Negative); NITRITE,URINE NEGATIVE (Negative); OCCULT BLOOD,URINE 1+ (Negative); PROTEIN,URINE 1+ (Negative); UROBILINOGEN,URINE 0.2 (0.2-1.0)
[2023-05-16 09:50] LABS: CORONAVIRUS COVID-19 NAA NEGATIVE (NEGATIVE); INFLUENZA A NAA NEGATIVE (NEGATIVE); RESPIRATORY SYNCYTIAL VIR NAA NEGATIVE (NEGATIVE)
[2023-05-16 09:50] LABS: A/G RATIO 0.9 (1-2); ALANINE AMINOTRANSFERASE,ALT 49 U/L (16-63); ALBUMIN 3.4 g/dl (3.4-5.0); ALKALINE PHOSPHATASE 85 U/L (46-116); ANION GAP 16.3 (5-15); ASPARTATE AMNIOTRANSFERASE,AST 45 U/L (15-37); BILIRUBIN TOTAL 0.5 mg/dL (0.2-1.0); BLOOD UREA NITROGEN,BUN 22 mg/dL (7-18); BUN/CREATININE RATIO 16.9 (14-18); C-REACTIVE PROTEIN <0.2 mg/dL (<1.0); CALCIUM 8.9 mg/dL (8.5-10.1); CARBON DIOXIDE,CO2 24 mEq/L (21-32); CHLORIDE,CL 104 mEq/L (98-107); CREATININE 1.3 mg/dL (0.7-1.3); EST CRCL DRUG DOSING (CG) 48.23 mL/min; ESTIMATED GFR 58 mL/min (>60); GLUCOSE RANDOM 179 mg/dL (70-99); LIPASE 32 U/L (16-77); MAGNESIUM 1.8 mg/dL (1.8-2.4); PROTEIN TOTAL,TP 7.1 g/dl (6.4-8.2); SODIUM,NA 141 mEq/L (136-145); TROPONIN I HIGH SENSITIVITY 10 pg/mL (<=76)
[2023-05-16 10:03] LABS: BACTERIA,URINE FEW /hpf (FEW); EPITHELIAL CELLS,URINE 0-5 /hpf (0-5); MUCUS,URINE FEW /hpf (FEW); RBC,URINE 0-5 /hpf (0-5)
[2023-05-16 10:04] LABS: POTASSIUM,K 3.3 mEq/L (3.5-5.1)
[2023-05-16] MEDS ORDERED: Dexamethasone 10 MG/ML SDV IVPUSH ONE (11:04)
[2023-05-16] MEDS: Potassium Chloride 10 MEQ in Premix Bag 1 BAG IV SCH ×2 (12:53→13:41)
== END 2023-05-16 13:59 ==
LOC: JD.ED 08:03
DX: R56.9 Unspecified convulsions (principal); C79.31 Secondary malignant neoplasm of brain; Z85.51 Personal history of malignant neoplasm of bladder; E78.00 Pure hypercholesterolemia, unspecified; K21.9 Gastro-esophageal reflux disease without esophagitis; Z79.899 Other long term (current) drug therapy; Z20.822 Contact with and (suspected) exposure to COVID-19
CPT/HCPCS: 0241U; 36415; 70450; 71045; 80053; 81001; 83605; 83690; 83735; 83880; 84484; 85025; 85610; 85730; 86140; 87040; 93005; J1100; J1953; J2060; J3480; J3490; J7042

== ENCOUNTER 2023-07-18 14:05 | Emergency (ER) | payer OTHER ==
[2023-07-18 16:48] VITALS: BP 125/86; PULSE 95
== END 2023-07-18 16:30 | disposition home or self-care (01) ==
LOC: JD.ED 14:05
DX: R63.0 Anorexia (principal); R11.0 Nausea; E78.00 Pure hypercholesterolemia, unspecified; Z79.01 Long term (current) use of anticoagulants; Z79.899 Other long term (current) drug therapy
CPT/HCPCS: 99282; 99283